=== PATIENT | female | born 1985 | race Two or more races ===

== ENCOUNTER 2025-03-04 11:50 | Outpatient (CLI) | payer OTHER | END 2025-03-04 12:03 | disposition home or self-care (01) | LOC: MRI 11:50 | PROVIDERS: ATTEND Obstetrics & Gynecology | DX: D25.9 Leiomyoma of uterus, unspecified (principal); N84.0 Polyp of corpus uteri | CPT/HCPCS: 72197 ==

== ENCOUNTER 2025-06-05 08:30 | Inpatient (IN) | payer OTHER ==
[~2025-06-05] VITALS: Ht 160 cm; Wt 67.6 kg
[2025-06-05 09:48] VITALS: BP 111/76
[2025-06-05 09:50] LABS: BASO % 1.0 % (0.1-1.2); EOS # 0.18 (0.04-0.54); EOS % 2.5 % (0.7-7.0); LYMPH # 3.76 (1.18-3.74); LYMPH % 52.1 % (19.3-53.1); MEAN PLATELET VOLUME 11.00 fl (9.4-12.4); MONO # 0.43 (0.24-0.82); MONO % 6.0 % (4.7-12.5); NEUT # 2.75 (1.56-6.13); NEUT % 38.1 % (34.0-71.1); RED CELL DISTRIBUTION WIDTH 13.3 % (11.6-14.4); URINE APPEARANCE Clear; URINE BILIRRUBIN Negative (NEGATIVE); URINE BLOOD Negative; URINE COLOR Yellow; URINE GLUCOSE Negative (NEGATIVE); URINE KETONE Negative (NEGATIVE); URINE LEUKOCYTE Negative; URINE NITRATE Negative; URINE PROTEIN Negative (NEGATIVE); URINE UROBILINOGEN 0.2 E.U./dl
[2025-06-05 09:52] LABS: URINE BACTERIA 751.0 uL (0.0-1933); URINE EPITHELIAL CELLS 31.3 uL (0.0-38.8); URINE WBC 15.9 uL (0.0-23.2)
[2025-06-05 09:59] LABS: URINE CAST 0.00 uL (0.0-1.40); URINE RBC 0.5 uL (0.0-20.8)
[2025-06-05 10:09] LABS: INR 0.95
[2025-06-05 10:38] LABS: ALT/SGPT 29 U/L (12-78); AST/SGOT 13 U/L (15-37); BILIRUBIN TOTAL 0.44 mg/dL (0.3-1.2); BUN CREA RATIO 21 (7.0-25.0); CREATININE SERUM 0.68 mg/dL (0.55-1.02); GFR 97.36; GLOBULINA 3.8 G/DL (2.4-3.5); GLUCOSE FASTING 86 mg/dL (65-100); OSMOLALITY SERUM 283 MOSM/KG (275-295)
[2025-06-05 10:39] LABS: HCG QUANTITATIVE < 1 mUI/mL (1-3)
[2025-06-05 10:40] LABS: RH POSITIVE
[2025-06-11] MEDS ORDERED: POVIDONE-IODINE 118 ML BOTT TOP ONE (07:30)
[2025-06-11] MEDS ORDERED: CEFAZOLIN SODIUM 1,000 MG VIAL IV ONE (07:30)
[2025-06-11] MEDS ORDERED: VASOPRESSIN 20 UNITS/ML VIAL IV NR (07:30)
[2025-06-11] MEDS ORDERED: TRANEXAMIC ACID 100MG/1ML (1000MG) AMPUL IV ONE (07:30)
[2025-06-11] MEDS ORDERED: THROMBIN,HU/FIBRINOGEN/CALCIUM 10 ML SYRINGE TOP ONE (10:15)
[2025-06-11] MEDS ORDERED: VISTASEAL DUAL APPICATOR 1 EACH APPL TOP ONE (10:15)
[2025-06-11] MEDS ORDERED: SUGAMMADEX SODIUM 200 MG/2 ML VIAL IV ONE (11:45)
[2025-06-11] MEDS ORDERED: MORPHINE SULFATE 4 MG/ML VIAL IV ONE (12:20)
[2025-06-11] MEDS ORDERED: ACETAMINOPHEN 500 MG GEL..CAP PO SCH (12:23)
[2025-06-11] MEDS ORDERED: RINGERS SOLUTION,LACTATED 1,000 ML IV SCH (12:30)
[2025-06-11] MEDS ORDERED: GABAPENTIN 300 MG CAPSULE PO SCH (13:00)
[2025-06-11] MEDS ORDERED: KETOROLAC TROMETHAMINE 30 MG VIAL IV ONE (13:20)
[2025-06-11] MEDS ORDERED: KETOROLAC TROMETHAMINE 30 MG VIAL IV SCH (14:00)
[2025-06-11 17:14] VITALS: BP 114/71
[2025-06-12 00:17] VITALS: BP 99/65
[2025-06-12 07:22] LABS: BASO % 0.2 % (0.1-1.2); EOS # 0.11 (0.04-0.54); EOS % 0.9 % (0.7-7.0); LYMPH # 2.88 (1.18-3.74); LYMPH % 23.4 % (19.3-53.1); MEAN PLATELET VOLUME 11.90 fl (9.4-12.4); MONO # 0.95 (0.24-0.82); MONO % 7.7 % (4.7-12.5); NEUT # 8.31 (1.56-6.13); NEUT % 67.6 % (34.0-71.1); RED CELL DISTRIBUTION WIDTH 13.7 % (11.6-14.4)
[2025-06-12 08:00] VITALS: BP 107/69
== END 2025-06-12 08:55 | disposition home or self-care (01) | DRG 743 ==
LOC: OB/GYN 06-11 05:06 → O/R 06-11 05:06 → SURG 06-11 07:00 → OB/GYN 06-11 11:55
PROVIDERS: ADMIT Student in an Organized Health Care Education/Training Program; ATTEND Student in an Organized Health Care Education/Training Program
PROC: 0UB44ZZ Excision of Uterine Supporting Structure, Percutaneous Endoscopic Approach (ICD-10-PCS; 2025-06-11)
PROC: 0DBW4ZZ Excision of Peritoneum, Percutaneous Endoscopic Approach (ICD-10-PCS; 2025-06-11)
PROC: 8E0W4CZ Robotic Assisted Procedure of Trunk Region, Percutaneous Endoscopic Approach (ICD-10-PCS; 2025-06-11)
PROC: 3E1P88Z Irrigation of Female Reproductive using Irrigating Substance, Via Natural or Artificial Opening Endoscopic (ICD-10-PCS; 2025-06-11)
PROC: 0UB94ZZ Excision of Uterus, Percutaneous Endoscopic Approach (ICD-10-PCS; principal; 2025-06-11 07:00)
DX: D25.9 Leiomyoma of uterus, unspecified (principal); N80.3C1 Endometriosis of the right uterosacral ligament, unspecified depth
CPT/HCPCS: 58546; 58662; 58350; S2900